=== PATIENT | male | born 1985 | race American Indian/Alaskan Native ===

== ENCOUNTER 2019-03-21 23:47 | Emergency (ER) | payer SELFPAY ==
[2019-03-22 00:01] VITALS: BP 129/60
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
== END 2019-03-22 05:49 | disposition home or self-care (01) ==
LOC: ED 23:47
DX: T21.16XA Burn of first degree of male genital region, initial encounter (principal); N48.5 Ulcer of penis; F17.200 Nicotine dependence, unspecified, uncomplicated; Z79.899 Other long term (current) drug therapy; X58.XXXA Exposure to other specified factors, initial encounter
CPT/HCPCS: 99282